=== PATIENT | female | born 2000 | race Caucasian/White ===

== ENCOUNTER 2021-12-23 21:24 | Emergency (ER) | payer SELFPAY ==
[~2021-12-23] VITALS: Ht 154.9 cm; Wt 84.1 kg
[2021-12-23 21:45] VITALS: BP 122/81
== END 2021-12-23 23:12 | disposition home or self-care (01) ==
LOC: EMS 21:27
DX: M25.562 Pain in left knee (principal)
CPT/HCPCS: 29505; 99283